=== PATIENT | male | born 2005 | race Caucasian/White ===

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

== ENCOUNTER 2024-03-20 20:11 | Emergency (ER) | payer BC ==
--- OUTSIDE RECORDS SUMMARY | 2024-03-20 20:14 | XMS REPORT | Continuity of Care Document ---
Author Name Unknown Address [address] [place] [address] [facility] Address [address] [place] [address] Care Team Providers Care Network Liaison Name Role Phone PCP, PATIENT DOES NOT HAVE A Primary Care Physic gricelda Unavailable Ruy Walls Attending Clinician Unavailable UNKNOWN, ATTENDING Attending Clinician Unavailab Samantha Dean PA-C Attending Clinician SAMANTHA LINK Attending Clinician Unavailable Unknown, Attending Attending Clinician Unavailab le Doctor Unassigned, [place] Attending Clinician U navailable Payers Payer Name Policy Type Policy Number Effective Date Expirati on Date Source [employer] [place] - OUT OF STATE [id number] 2023 00:00:00 [facility] [id number] 2019 00:00:00 [facility] [id number] 2019 00:00:00 [facility] [id number] 2019 00:00:00 [facility] Problems Condition Name Condition Details Condition Category Status Onset Date Resolution Date Last Treatment Date Treating Clinician Comments Source [id number] Repetitive intrusions of sleep Problem Active [facility] [id number] 00 Daytime somnolence Problem Active [facility] [id number] Mild intermitte nt asthma without complicati on Problem Active [facility] [id number] Brain tumor Problem Active [facility] [id number] Obesity, unspecifie d Problem Active [facility] [id number] Diverticul itis of large intestine, unspecifie d bleeding status, unspecifie d complicati on status Problem Active [facility] [id number] Diverticul itis Problem Active [facility] Allergies, Adverse Reactions, Alerts Allergy Name Allergy Type Status Severity Reaction(s) Onset Date Inactive Date Treating Clinician Comments Source NO KNOWN ALLERGIE S Drug Class Active [facility] Social History Social Habit Start Date Stop Date Quantity Comments Source History of Tobacco Use Current Smoker [facility] Sexual orientation [facility] History of Social function 2019-09-30 00:00:00 2019-09-30 00:00:00 [facility] Tobacco use and exposure 2019-02-03 00:00:00 2019-02-03 00:00:00 Smokeless tobacco non-user [facility] Sex Assigned At 2005 00:00:00 2005 00:00:00 [facility] Smoking Status Start Date Stop Date Source Current Smoker 2020-01-28 00:00:00 [facility] Never smoked tobacco [facility] Medications Ordered Medication Name Filled Medication Name Start Date Stop Date Current Medication? Ordering Clinician Indication Dosage Frequency Signature (SIG) Comments Components Source bromphenira mine-pseudo ephedrine-D M (BROMFED DM) 2-30-10 mg/5 mL syrup 2022-02 00:00: 00 Yes [id number] 5mL Take 5 mL by mouth 3 (three) times daily as needed for Cold symptoms or Cough. [facility] cetirizine 10 mg tablet 2022-02 00:00: 00 Yes [id number] 10mg Take 1 tablet by mouth in the morning. [facility] fluticasone propionate 50 mcg/actuati on nasal spray 2022-02 00:00: 00 Yes [id number] 2{spray } Use 2 Sprays in each nostril in the morning. [facility] azelastine 137 mcg (0.1 %) nasal spray 2022-02 00:00: 00 Yes [id number] 1{spray } Use 1 [place] in each nostril in the morning and 1 [place] in the evening. Use in each nostril as directed [facility] ProAir HFA ProAir HFA 1-13 00:00: 00 Yes Ruy Walls 2 puffs as needed [facility] ProAir HFA 108 (90 Base) MCG/ACT ProAir HFA 108 (90 Base) MCG/ACT No 2{puffs _as_nee ded} ProAir HFA 108 (90 Base) MCG/ACT Vital Signs Vital Name Observation Time Observation Value Comments S ource Systolic blood pressure 2023-02-07 21:31:00 138 mm[Hg] [facility] Diastolic blood pressure 2023-02-07 21:31:00 83 mm[Hg] [facility] Heart rate 2023-02-07 21:31:00 102 /min [facility] Body temperature 2023-02-07 21:31:00 36.61 Lazara [facility] Respiratory rate 2023-02-07 21:31:00 17 /min [facility] Body height 2023-02-07 21:31:00 182.9 cm [facility] Body weight 2023-02-07 21:31:00 106.397 kg [facility] BMI 2023-02-07 21:31:00 31.81 kg/m2 [facility] Body mass index (BMI) [Percentile] Per age and sex 2023-02-07 21:31:00 96.41 % [facility] Oxygen saturation in Arterial blood by Pulse oximetry 2023-02-07 21:31:00 99 /min [facility] height 2020-01-31 16:20:00 69.5 [in_i] Comm on [facility] weight 2020-01-31 16:20:00 280 [lb_av] Comm on [facility] bmi 2020-01-31 16:20:00 40.75 kg/m2 [facility] height 2019-11-23 11:30:00 69.5 [in_i] Comm on [facility] weight 2019-11-23 11:30:00 278.3 [lb_av] Co mmon [facility] temperature 2019-11-23 11:30:00 97.7 [degF] Com mon [facility] bmi 2019-11-23 11:30:00 40.5 kg/m2 [facility] oximetry 2019-11-23 11:30:00 98 % [facility] respiratory rate 2019-11-23 11:30:00 16 /min [facility] blood pressure systolic 2019-11-23 11:30:00 137 mm[Hg] [facility] blood pressure diastolic 2019-11-23 11:30:00 74 mm[Hg] [facility] Procedures Procedure Date / Time Performed Performing Clinicia n Source POCT MOLECULAR FLU 2023-02-07 21:42:00 Unknown, Attend ing [facility] POCT MOLECULAR STREP 2023-02-07 21:40:00 Unknown, Atte jayy [facility] POCT SARS-COV-2 ANTIGEN (BINAX NOW) 2023-02-07 21:38:00 River Baltazar [facility] ASSIGNMENT OF BENEFITS 2023-02-07 21:22:49 Docto r Unassigned, [place] [facility] Encounters Start Date/Time End Date/Time Encounter Type Admission Type Attending Clinicians Care Facility Care Department Encounter ID Source 2021-03-21 14:25:17 Outpatient [facility]s [facility] [id number] [facility] 2021-03-21 11:24:51 Outpatient Walls, [facility] [id number] [facility] 2021-03-21 11:17:54 Outpatient Walls, [facility] [id number] [facility] 2021-03-21 11:17:40 [facility] [id number] [facility] 2021-03-21 11:06:01 [facility] [id number] [facility] 2021-03-21 11:03:05 [facility] [id number] [facility] 2021-03-21 10:59:58 [facility] [id number] [facility] 2024-03-20 11:45:00 2024-03-20 11:45:00 Outpatient R UNKNOWN, ATTENDING [facility] [id number] [facility] 2023-03-02 00:00:00 2023-03-02 00:00:00 Refill [facility] [id number] [facility] 2023-03-01 00:00:00 2023-03-01 00:00:00 Refdio [facility] [id number] [facility] 2023-02-07 15:20:00 2023-02-07 16:02:36 Outpatient R SAMANTHA LINK [facility] [id number] [facility] 2023-02-07 15:20:00 2023-02-07 15:40:00 Urgent Care EliemagySamantha Unknown, Attending [facility] [id number] [facility] 2023-02-07 00:00:00 2023-02-07 00:00:00 Orders Only Doctor Unassigned, [place] [facility] [id number] [facility] 2020-01-31 00:00:00 2020-01-31 00:00:00 OFFICE VISIT EST PT LEVEL 3 STLMLC STLMLC [id number] [facility] 2019-11-24 00:00:00 2019-11-24 00:00:00 (TEL) STLMLC STLMLC [id number] [facility] 2019-11-23 00:00:00 2019-11-23 00:00:00 OFFICE VISIT EST PT LEVEL 3 STLMLC STLMLC [id number] [facility] 2019-10-18 14:50:00 2019-10-18 14:50:00 [facility] [place] [facility] [id number] [facility] 2019-10-15 15:00:00 2019-10-15 15:00:00 [facility] Medicine [id number] [facility] 2019-10-11 08:13:00 2019-10-11 08:13:00 [facility] [id number] [facility] 2019-05-22 09:54:00 2019-05-22 09:54:00 [facility] [place] [facility] [id number] [facility] 2019-05-17 09:54:00 2019-05-17 09:54:00 [facility] [place] [facility] Family Medicine [facility] Medicine [id number] [facility] 2019-04-30 06:56:00 2019-04-30 06:56:00 [facility] [place] [facility] Medicine [facility] Medicine [id number] [facility] 2019-04-13 09:15:00 2019-04-13 09:15:00 [facility]patient [facility] [place] [facility] [id number] [facility] 2019-03-30 08:30:00 2019-03-30 08:30:00 [facility] [place] [facility] Medicine [facility] [id number] [facility] 2019-03-19 08:23:00 2019-03-19 08:23:00 [facility] [place] [facility] [id number] [facility] 2019-03-18 09:00:00 2019-03-18 09:00:00 [facility] [place] [facility] [id number] [facility] 2019-03-15 10:30:00 2019-03-15 10:30:00 [facility] [id number] [facility] 2019-03-08 11:00:00 2019-03-08 11:00:00 [facility] [id number] [facility] Results Test Description Test Time Test Comments Results Result Co mments Source [facility] SARS-COV-2 ANTIGEN (BINAX NOW)2023-02-07 21:53:00* Test Item Value Reference Range Interpretation Comme nts POCT SARS-COV-2 ANTIGEN (claudia t code = 98155-5) Not Detected Not Detected On board controls acceptable with C Line (test code = 3574) Yes Lab Interpretation (test cod e = 54266-0) Normal [facility] MOLECULAR [id number] 21:49:14* Test Item Value Reference Range Interpretation Comme nts POCT Molecular Strep (test c ode = 75595-1) Negative Negative Lab Interpretation (test cod e = 03327-9) Normal [facility], [facility] Test Item Value Reference Range Interpretation Comme nts Ferritin, Serum (test code = 2276-4) 126 CBC With Differential/Platelet* Test Item Value Reference Range Interpretation Comme nts WBC (test code = 6690-2) 8.1 RBC (test code = 789-8) 5.39 Hemoglobin (test code = 718-7) 14.8 Hematocrit (test code = 4544-3) 45.7 MCV (test code = 787-2) 85 MCH (test code = 785-6) 27.5 MCHC (test code = 786-4) 32.4 RDW (test code = 788-0) 13.2 Platelets (test code = 777-3) 293 Neutrophils (test code = 770-8) 58 Lymphs (test code = 736-9) 31 Monocytes (test code = 5905-5) 8 Eos (test code = 713-8) 2 Basos (test code = 706-2) 1 Immature Cells (test code = UNLOINC) Neutrophils (Absolute) (test code = 751-8) 4.7 Lymphs (Absolute) (test code = 731-0) 2.5 Monocytes(Absolute) (test code = 742-7) 0.6 Eos (Absolute) (test code = 711-2) 0.2 Baso (Absolute) (test code = 704-7) 0.0 Immature Granulocytes (test code = 28972-8) 0 Immature Grans (Abs) (test c ode = 25767-2) 0.0 NRBC (test code = 64075-9) Hematology Comments: (test c ode = 63218-2)
--- NOTE | 2024-03-20 21:08 | RAD REPORT ---
Exam:Wrist Right 3 View HISTORY: Right wrist pain FINDINGS: No fracture or dislocation seen If the patient continues to have symptoms to suggest an occult fracture then follow-up x-ray in 7 day s would be recommended
[2024-03-20] MEDS ORDERED: IBUPROFEN 400 MG TAB ONE (21:14)
--- NOTE | 2024-03-20 21:19 | EDPHYS ---
Physician Documentation [facility] Name: Owen Hughes Age: 18 yrs Sex: Male : 2005 Arrival Date: 03/20/2024 Time: 20:11 Bed IW1 Private MD: ROSIE Physician Madhu Lujan HPI: 03/20 20:45 This 18 yrs old Male presents to ER via Ambulatory with complaints of Hand Injury - cp right. 20:45 The patient or guardian reports injury, pain. The complaints affect the right wrist cp diffusely. Context: resulted from a fall, on an outstretched hand. Onset: The symptoms/episode began/occurred yesterday. Associated signs and symptoms: Pertinent positives: radiating pain to right hand, Pertinent negatives: cyanosis distally, numbness distally. Historical: - Allergies: 20:37 No Known Allergies; br2 - PMHx: 20:37 Asthma; Pneumonia; BRAIN TUMOR; br2 - PSHx: 20:37 Brain sx; br2 - Immunization history:: Adult Immunizations up to date. - Infectious Disease History:: Denies. - Social history:: Smoking status: Reported history of juuling and/or vaping. Patient uses alcohol, but reports only rare drinking. ROS: 20:50 MS/extremity: Positive for pain, of the right wrist, Negative for decreased range of cp motion, deformity, paresthesias, 20:50 Eyes: Negative for injury, pain, redness, and discharge, cp 20:50 Constitutional: Negative for body aches, chills, fever, 20:50 Neck: Negative for pain with movement, pain at rest, 20:50 Back: Negative for pain at rest, pain with movement, 20:50 Neuro: Negative for headache, numbness, weakness, 20:50 All other systems are negative, Exam: 20:55 Constitutional: The patient appears in no acute distress, alert, awake, well developed, cp well nourished, 20:55 Head/Face: Normocephalic, atraumatic. cp 20:55 Neck: ROM/movement: is normal, is supple, without pain, no range of motions cp limitations, 20:55 Back: pain, is absent, ROM is normal, 20:55 Musculoskeletal/extremity: Extremities: noted in the right wrist and right hand: pain, tenderness, There is no evidence of decreased ROM, deformity, ROM: full passive range of motion, in the right hand and right wrist, limited passive range of motion due to pain, in the right wrist, Perfusion: the extremity is normally perfused throughout, the right hand and right wrist Sensation intact. Vital Signs: 20:35 BP 161 / 77; Pulse 90; Resp 18; Temp 97.2; Pulse Ox 98% ; Weight 108.86 kg; Height 6 br2 ft. 0 in. ; Pain 3/10; 20:35 Body Mass Index 32.55 (108.86 kg, 182.88 cm) - Percentile 97.5 % br2 20:35 Pain Scale: Adult br2 MDM: 20:23 Medical Screening Exam initiated cp 21:00 Differential diagnosis: dislocation, sprain, fracture. cp 21:18 Data reviewed: vital signs, nurses notes, radiologic studies, plain films, and as a cp result, I will discharge patient. 21:18 I considered the following discharge prescriptions or medication management in the cp emergency department Medications were administered in the Emergency Department. See MAR. Counseling: I had a detailed discussion with the patient and/or guardian regarding the historical points, exam findings, and any diagnostic results supporting the discharge/admit diagnosis, radiology results, to return to the emergency department if symptoms worsen or persist or if there are any questions or concerns that arise at home. Response to treatment: the patient's symptoms have mildly improved after treatment, and as a result, I will discharge patient. 03/20 20:41 Order name: Wrist Right 3 View XRAY; Complete Time: 21:10 br2 03/20 21:10 Interpretation: Report reviewed. cp 03/20 21:10 Order name: Wrist Splint; Complete Time: 21:44 cp Administered Medications: 21:24 Drug: Ibuprofen PO 800 mg PO once Route: PO; br2 21:26 Follow up: Response: Medication administered at discharge. br2 Disposition Summary: 03/20/24 21:19 Discharge Ordered Notes: Location: Home cp Problem: new cp Symptoms: have improved cp Condition: Stable cp Diagnosis - Pain in right wrist cp Followup: cp - With: Marcus Woods MD - When: 5 - 6 days - Reason: pain continues Discharge Instructions: - Discharge Summary Sheet cp - Wrist Pain, Adult cp Forms: - Medication Reconciliation Form cp - Antibiotic Education cp - Prescription Opioid Use cp - Patient Portal Instructions cp - Leadership Thank You Letter cp - Work release form br2 Prescriptions: - Ibuprofen 800 mg Oral Tablet - take 1 tablet ORAL route every 8 hours As needed take with food; 30 tablet; cp Refills: 0, Product Selection Permitted Addendum: 03/23/2024 14:16 Co-signature as Attending Physician, Madhu Lujan MD I agree with the assessment and c retana plan of care. Signatures: Dispatcher [employer] EDMadhu Rae MD MD cha Page, Corey, PA PA India Mo, RN RN br2
--- NOTE | 2024-03-20 21:19 | ER ---
Nurse's Notes [facility] Name: Owen Hughes Age: 18 yrs Sex: Male : 2005 Arrival Date: 03/20/2024 Time: 20:11 Bed IW1 Private MD: Diagnosis: Pain in right wrist Presentation: 03/20 20:35 Chief complaint: Patient states: S/P FALL YESTERDAY AND ATTEMPTED TO CATCH HIMSELF, C/O br2 RIGHT WRIST PAIN. Coronavirus screen: Client denies travel out of the [place] in the last 14 days. Ebola Screen: Patient denies exposure to infectious person. Initial Sepsis Screen: Does the patient meet any 2 criteria? No. Patient's initial sepsis screen is negative. Does the patient have a suspected source of infection? No. Patient's initial sepsis screen is negative. Risk Assessment: Do you want to hurt yourself or someone else? Patient reports no desire to harm self or others. Onset of symptoms was March 19, 2024. 20:35 Method Of Arrival: Ambulatory br2 20:35 Acuity: ARIA 4 br2 Triage Assessment: 20:37 General: Appears in no apparent distress. distressed, Behavior is calm, cooperative. br2 Pain: Complains of pain in right wrist. Musculoskeletal: Capillary refill < 3 seconds, Range of motion: intact in all extremities, Swelling absent Reports pain in right wrist. Injury Description: HYPER EXTENDED. Historical: - Allergies: 20:37 No Known Allergies; br2 - PMHx: 20:37 Asthma; Pneumonia; BRAIN TUMOR; br2 - PSHx: 20:37 Brain sx; br2 - Immunization history:: Adult Immunizations up to date. - Infectious Disease History:: Denies. - Social history:: Smoking status: Reported history of juuling and/or vaping. Patient uses alcohol, but reports only rare drinking. Screenin:35 [facility] ED Fall Risk Assessment (Adult) History of falling in the last 3 months, br2 including since admission No falls in past 3 months (0 pts) Confusion or Disorientation No (0 pts) Intoxicated or Sedated No (0 pts) Impaired Gait No (0 pts) Mobility Assist Device Used No (0 pt) Altered Elimination No (0 pt) Score/Fall Risk Level 0 - 2 = Low Risk Oriented to surroundings. Abuse screen: Denies threats or abuse. Denies injuries from another. Nutritional screening: No deficits noted. Tuberculosis screening: No symptoms or risk factors identified. Vital Signs: 20:35 BP 161 / 77; Pulse 90; Resp 18; Temp 97.2; Pulse Ox 98% ; Weight 108.86 kg; Height 6 br2 ft. 0 in. ; Pain 3/10; 20:35 Body Mass Index 32.55 (108.86 kg, 182.88 cm) - Percentile 97.5 % br2 20:35 Pain Scale: Adult br2 ED Course: 20:12 Patient arrived in ED. im 20:22 Madhu German PA is PHCP. cp 20:22 Madhu Lujan MD is Attending Physician. cp 20:35 Patient has correct armband on for positive identification. Provided Education on: PLAN br2 OF CARE. 20:37 Triage completed. br2 20:37 Arm band placed on left wrist. br2 20:39 India Dangelo RN is Primary Nurse. br2 21:03 Wrist Right 3 View XRAY In Process Unspecified. EDMS 21:18 Marcus Woods MD is Referral Physician. cp 21:26 No provider procedures requiring assistance completed. Patient did not have IV access br2 during this emergency room visit. 21:43 WRIST SPLINT APPLIED TO RIGHT WRIST. br2 Administered Medications: 21:24 Drug: Ibuprofen PO 800 mg PO once Route: PO; br2 21:26 Follow up: Response: Medication administered at discharge. br2 Medication: 21:43 VIS not applicable for this client. br2 Outcome: 21:19 Discharge ordered by . cp 21:26 Discharged to home ambulatory, br2 21:26 Condition: good 21:26 Discharge instructions given to patient, Instructed on discharge instructions, follow up and referral plans. Demonstrated understanding of instructions, follow-up care, medications, Prescriptions given X 1, 21:44 Patient left the ED. br2 Signatures: Dispatcher [employer] EDOK Madhu German PA PA cp Hailey Almaraz im India Dangelo RN RN br2
[2024-03-21 00:31] VITALS: BP 161/77; TEMP 97.2; O2SAT 98
== END 2024-03-20 21:44 | disposition home or self-care (01) ==
LOC: ER 20:11
DX: M25.531 Pain in right wrist (principal)
CPT/HCPCS: 99283